=== PATIENT | female | born 1995 | race Caucasian/White ===

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

== ENCOUNTER 2017-05-14 00:20 | Emergency (ER) | payer BC ==
[~2017-05-14] VITALS: Ht 175.3 cm; Wt 70.0 kg
[2017-05-14 00:28] VITALS: Ht 175.3 cm; Wt 70.0 kg
--- NOTE | 2017-05-14 00:48 | EMERGENCY ROOM VISIT NOTE ---
History Report prepared by Jose Daniel: Eriberto Monet Under the Supervision of: Dr. Carolina Barroso D.O. First contact with patient: 00:32 Chief Complaint: ABDOMINAL PAIN Stated Complaint: UTERINE PAIN,RADIATING CRAMPS,NAUSEA,PAIN W/MOVING History of Present Illness The patient is a 21 year old female who presents to the Emergency Room with complaints of constant abdominal pain beginning tonight. The patient states that she was having sex tonight when she began to experience a sharp pain that radiated to her lower abdomen. She notes that she feels as though her pain is localized to her uterus. She reports that she could not move for about ten minutes after first experiencing the pain. The patient states that she has not experienced similar pain before and states that her pain is worse than when her IUD was placed. She also complains of nausea but denies any bleeding, sore throat, and cough. She notes that she took ibuprofen with mild relief of her pain. She reports that she has a history of recurring UTIs but does not have a history of ovarian cysts. Source of History: patient Onset: tonight Position: abdomen Quality: sharp Timing: constant Modifying Factors (Relieving): other (ibuprofen) Associated Symptoms: + nausea, No sorethroat, No cough Note: The patient also denies any bleeding. Review of Systems See HPI for pertinent positives & negatives. A total of 10 systems reviewed and were otherwise negative. Past Medical & Surgical Medical Problems: (1) UTI (urinary tract infection) Surgical Problems: (1) Hx of tonsillectomy (2) IUD (intrauterine device) in place Family History Cancer Hypertension Social History Smoking Status: Never Smoker Alcohol Use: occasionally Marital Status: in relationship Housing Status: lives with roommate Occupation Status: [employer] student Current/Historical Medications Scheduled Iud's (Paragard Intrauterine [employer]), 1 CONTINOUS [accutane], 40 MG PO DAILY Scheduled PRN Ibuprofen (Advil), 200-600 MG PO Q4H PRN for Headache or Pain Trimethoprim/Sulfamethoxazole (Bactrim 400MG/80MG), 1 TAB PO Q12H PRN for DYSURIA Allergies Coded Allergies: No Known Allergies (Unverified , 05/14/17) Physical Exam Vital Signs Date Time Temp Pulse Resp B/P (MAP) Pulse Ox O2 Delivery O2 Flow Rate FiO2 3/12/18 02:24 36.8 75 18 128/67 98 Room Air 05/14/17 01:25 36.7 79 18 129/69 98 Room Air 05/14/17 00:28 36.7 90 18 134/88 97 Room Air Physical Exam HEENT: Head - normocephalic and atraumatic Pupils are equal, round, and reactive to light. Extraocular eye muscles are intact, and sclera are anicteric. Nose - moist nasal mucosa without discharge. Mouth - moist buccal mucosa. Oropharynx is nonerythematous and there is no tonsillar exudate or edema noted. Neck: Supple; no JVD, nuchal rigidity, cervical lymphadenopathy. Heart: Regular rate and rhythm. There is a normal S1 and S2 with no murmurs, clicks, or gallops appreciated. Lungs: Clear to auscultation bilaterally with no wheezes, rales, or rhonchi. Abdomen: Soft, nondistended, with good bowel sounds. There are no palpable pulsatile masses or hepatosplenomegaly. There is no guarding, rigidity, or rebound noted. Pain to palpation in the suprapubic region. Extremities: No evidence of cyanosis, clubbing, or edema. There are easily palpable peripheral pulses. Skin: warm and dry with good turgor and no rashes. Medical Decision & Procedures ER Provider Diagnostic Interpretation: Radiology results as stated below per my review and the radiologist's interpretation: US PELVIS: IUD in place without an otherwise normal-appearing uterus. Enlarged right ovary measuring 6.2 x 3.2 x 3.4 cm with complex 4.1 cm cyst, probably a hemorrhagic cyst. Unremarkable left ovary. No evidence of torsion. Mild free pelvic fluid. Radiologist: Brendan Merchant M.D. Laboratory Results Test 05/14/17 00:52 Urine Color YELLOW Urine Appearance CLEAR (CLEAR) Urine pH 6.0 (4.5-7.5) Urine Specific [place] 1.018 (1.000-1.030) Urine Protein NEG (NEG) Urine Glucose (UA) NEG (NEG) Urine Ketones NEG (NEG) Urine Occult Blood NEG (NEG) Urine Nitrite NEG (NEG) Urine Bilirubin NEG (NEG) Urine Urobilinogen NEG (NEG) Urine Leukocyte Esterase NEG (NEG) Urine Test NEG (NEG) Laboratory results per my review. ED Course 0038: Past medical records reviewed. The patient was evaluated in room B8. A complete history and physical exam was performed. She declined wanting anything for pain. She went for an ultrasound of her pelvis. 0212: I reevaluated and updated the patient. She feels better. 0242: Upon reevaluation, the patient is stable. I discussed findings and results with her. She verbalized agreement of the treatment plan. The patient was discharged home. Medical Decision The patient is a 21 year old female who presents to the Emergency Room with complaints of constant abdominal pain beginning tonight. Differential diagnoses include: ovarian cyst, ovarian cyst rupture, ovarian torsion, cystitis, and endometritis. Lab Results Show: Urinalysis negative, negative. This is a 21-year-old female patient presents to the emergency department with a sudden onset of severe suprapubic abdominal pain while having intercourse. She has no vaginal bleeding or discharge. On physical exam, she has exquisite tenderness in the suprapubic region. Ultrasound reveals an ovarian cyst with probable rupture as she has some free fluid in that area. The patient was instructed to follow-up with [facility] gynecology. Our hospice case manager to facilitate this. She should avoid strenuous activity over the next 2-3 days. She was told return to the emergency department if she had any worsening symptoms. Blood Pressure Screening Patient's blood pressure: Normal blood pressure Blood pressure disposition: Did not require urgent referral Impression Primary Impression: Ruptured ovarian cyst Scribe Attestation The scribe's documentation has been prepared under my direction and personally reviewed by me in its entirety. I confirm that the note above accurately reflects all work, treatment, procedures, and medical decision making performed by me. Departure Information Dispostion Home / Self-Care Referrals No Doctor, Assigned (PCP) Forms HOME CARE DOCUMENTATION FORM, IMPORTANT VISIT INFORMATION Patient Instructions My [facility] [employer] Additional Instructions Rest. No strenuous acivity for 3 days Nothing in the vagina for 5 days Return to the ER for worsening pain Use motin or tylenol for pain
[2017-05-14] MEDS ORDERED: accutane PO (00:51)
[2017-05-14] MEDS ORDERED: IUD'IUD (00:51)
[2017-05-14 02:24] VITALS: BP 128/67; PULSE 75; TEMP 36.8; O2SAT 98
--- NOTE | 2017-05-14 07:24 | DIAGNOSTIC IMAGING REPORT ---
PELVIC COMPLETE NON OB CLINICAL HISTORY: eval for ovarian tosion/cyst PAIN COMPARISON STUDY: None FINDINGS: The uterus measured 7.9 cm. Intrauterine device located appropriately within the central canal.. The endometrial stripe measured 4 mm. The right ovary measured 6 cm maximum including a 4 cm complex cyst.. The left ovary measured 4 cm maximum with normal vascular flow. There is no ultrasonographic evidence of ovarian torsion. It should be noted that ovarian torsion can be present with normal Doppler ultrasonographic findings. There was no evidence of pathologic free pelvic fluid. IMPRESSION: 1. 4 cm complex and/or hemorrhagic right ovarian cyst. 2. Intrauterine device located within the central uterine canal in good position. The above report was generated using voice recognition software. It may contain grammatical, syntax or spelling errors. Electronically signed by: Bruno Sears M.D. 05/14/2017 7:22 AM Dictated Date/Time: 05/14/2017 7:20 AM
== END 2017-05-14 02:25 | disposition home or self-care (01) ==
LOC: C.EDB 00:21
DX: N83.201 Unspecified ovarian cyst, right side (principal); Z97.5 Presence of (intrauterine) contraceptive device; Z87.440 Personal history of urinary (tract) infections; Z80.9 Family history of malignant neoplasm, unspecified; Z82.49 Family history of ischemic heart disease and other diseases of the circulatory system

== ENCOUNTER → 2017-05-16 | Outpatient (CLI) | payer BC ==
[~2017-05-16] MED LIST changes: +IUD'IUD; +accutane PO
== END | disposition home or self-care (01) ==
LOC: C.LABSPEC 17:32
PROVIDERS: ATTEND Obstetrics & Gynecology
DX: R10.2 Pelvic and perineal pain (principal)